=== PATIENT | female | born 1965 | race African-American/Black ===

== ENCOUNTER 2019-02-04 20:06 | Emergency (ER) | payer MEDICAID ==
[~2019-02-04] VITALS: Ht 177.8 cm; Wt 86.6 kg
[2019-02-04 20:12] VITALS: Ht 177.8 cm; Wt 86.6 kg
[2019-02-04 21:10] VITALS: BP 136/95
== END 2019-02-04 21:10 | disposition home or self-care (01) ==
LOC: ED 20:06
DX: R07.89 Other chest pain (principal); M25.512 Pain in left shoulder; R22.32 Localized swelling, mass and lump, left upper limb
CPT/HCPCS: Q0092

== ENCOUNTER 2019-11-16 07:37 | Emergency (ER) | payer SELFPAY ==
[~2019-11-16] VITALS: Ht 175.3 cm; Wt 102.1 kg
[2019-11-16 07:51] VITALS: Ht 175.3 cm; Wt 102.1 kg
[2019-11-16 08:30] LABS: BASOPHIL % 0.6 % (0-2); PLATELET COUNT 301 x10^3mcL (130-400)
[2019-11-16 08:33] LABS: UA SPECIFIC GRAVITY 1.025 (1.005-1.035); microscopic required? YES; urine erythrocyte 3+ (NEGATIVE)
[2019-11-16 08:35] LABS: RED CELL DISTRIBUTION WIDTH 20.1 % (11.5-14.5)
[2019-11-16 09:50] VITALS: BP 158/86
== END 2019-11-16 09:50 | disposition home or self-care (01) ==
LOC: ED 07:37
PROVIDERS: Emergency Medicine
DX: N93.8 Other specified abnormal uterine and vaginal bleeding (principal); N39.0 Urinary tract infection, site not specified
CPT/HCPCS: 36415